=== PATIENT | female | born 1955 | race Caucasian/White ===

== ENCOUNTER → 2022-06-19 | Outpatient (REF) | payer MEDICARE, OTHER | LOC: M SFHCDERM 14:09 | PROVIDERS: ATTEND Physician Assistant | DX: L57.8 Other skin changes due to chronic exposure to nonionizing radiation (principal) ==

== ENCOUNTER → 2022-07-17 | Outpatient (CLI) | payer MEDICARE, OTHER ==
[~2022-07-17] VITALS: Ht 157.5 cm; Wt 63.5 kg
== END ==
LOC: M LAB 06:16 → EDSTATUS 08:30
PROVIDERS: ATTEND Orthopaedic Surgery Hand Surgery
DX: Z01.812 Encounter for preprocedural laboratory examination (principal); Z11.52 Encounter for screening for COVID-19

== ENCOUNTER 2022-07-28 06:00 | Day surgery (SDC) | payer MEDICARE, OTHER ==
[~2022-07-28] VITALS: Ht 157.5 cm; Wt 65.8 kg
[2022-07-28] MEDS ORDERED: LR 1,000 ML IV SCH (06:45)
[2022-07-28] MEDS ORDERED: BUPIVACAINE HCL 0.25% 30ML VIAL As Ordered ONE (07:09)
[2022-07-28] MEDS ORDERED: POLYSPORIN TOPICAL OINTMENT 15GM As Ordered ONE (07:10)
[2022-07-28] MEDS ORDERED: ceFAZolin 2 GM/D5W 50 ML IV BAG As Ordered ONE (07:35)
[2022-07-28] MEDS ORDERED: fentaNYL 100 MCG/2 ML INJECTION As Ordered ONE (07:45)
[2022-07-28] MEDS ORDERED: LIDOCAINE 2% 100MG/5ML SDV (FOR ANES.) As Ordered ONE (07:45)
[2022-07-28] MEDS ORDERED: ONDANSETRON 4MG 2ML VIAL As Ordered ONE (07:45)
[2022-07-28] MEDS ORDERED: MIDAZOLAM INJ 2MG/2ML VIAL (J2250 PER 1MG) As Ordered ONE (07:45)
[2022-07-28] MEDS ORDERED: propofoL 200 MG/20 ML VIAL As Ordered ONE (07:45)
[2022-07-28] MEDS ORDERED: KETOROLAC 60MG 2ML VIAL As Ordered ONE (07:45)
[2022-07-28] MEDS ORDERED: ePHEDrine SULFATE 25 MG/5 ML(5MG/ML) SYRINGE As Ordered ONE (07:47)
[2022-07-28] MEDS ORDERED: ACETAMINOPHEN 1000MG 100ML IV BAG As Ordered ONE (07:58)
[2022-07-28] MEDS ORDERED: ONDANSETRON 4MG 2ML VIAL IV PRN (08:40)
[2022-07-28] MEDS ORDERED: oxyCODONE 5MG TAB PO PRN (08:40)
[2022-07-28] MEDS ORDERED: fentaNYL 100 MCG/2 ML INJECTION IV PRN (08:40)
[2022-07-28] MEDS ORDERED: PERC5TAB12 PO (08:50)
[2022-07-28 09:25] VITALS: BP 137/64
== END 2022-07-28 09:50 | disposition home or self-care (01) ==
LOC: M SDC 06:00
PROVIDERS: ATTEND Orthopaedic Surgery Hand Surgery
DX: M72.0 Palmar fascial fibromatosis [Dupuytren] (principal)
CPT/HCPCS: 26045; 87635; 88304; J0131; J0690; J1100; J1885; J2250; J2405; J3010

== ENCOUNTER → 2022-08-23 | Outpatient (CLI) | payer MEDICARE, OTHER ==
[~2022-08-23] MED LIST: PERC5TAB12 PO
== END ==
LOC: M LABSMTC 10:27
PROVIDERS: ATTEND Anesthesiology
DX: Z01.812 Encounter for preprocedural laboratory examination (principal); Z20.822 Contact with and (suspected) exposure to COVID-19

== ENCOUNTER 2022-08-28 06:30 | Day surgery (SDC) | payer MEDICARE, OTHER ==
[~2022-08-28] VITALS: Ht 157.5 cm; Wt 65.8 kg
[~2022-08-28 06:30] MED LIST changes: +LIDOCAINE W/EPINEPHRINE 1% 20ML VIAL XX ONE; +SODIUM BICARBONATE 8.4% INJ 50MEQ 50ML VIAL XX ONE
[2022-08-28 09:15] VITALS: BP 155/67
== END 2022-08-28 09:30 | disposition home or self-care (01) ==
LOC: M SDC 06:30
PROVIDERS: ATTEND Orthopaedic Surgery Hand Surgery
DX: M72.0 Palmar fascial fibromatosis [Dupuytren] (principal)

== ENCOUNTER → 2022-09-05 | Outpatient (REF) | payer MEDICARE, OTHER ==
[~2022-09-05] MED LIST changes: -LIDOCAINE W/EPINEPHRINE 1% 20ML VIAL XX ONE; -SODIUM BICARBONATE 8.4% INJ 50MEQ 50ML VIAL XX ONE
== END ==
LOC: M SFHCDERM 14:26
PROVIDERS: ATTEND Physician Assistant
DX: C44.622 Squamous cell carcinoma of skin of right upper limb, including shoulder (principal)

== ENCOUNTER → 2022-09-12 | Outpatient (REF) | payer MEDICARE, OTHER | LOC: M SFHCDERM 14:40 | PROVIDERS: ATTEND Physician Assistant | DX: Z48.02 Encounter for removal of sutures (principal) ==